=== PATIENT | male | born 1970 | race Caucasian/White ===

== ENCOUNTER 2017-03-21 12:27 | Emergency (ER) | payer BC ==
[2017-03-21] MEDS ORDERED: Ketorolac Tromethamine 30 MG/ML VIAL ONE (13:24)
[2017-03-21] MEDS ORDERED: predniSONE 20 MG TAB ONE (13:24)
[2017-03-21] MEDS ORDERED: Diazepam 5 MG TAB ONE (13:25)
[2017-03-21] MEDS ORDERED: Methocarbamol 500 MG TAB PO SCH (15:45)
== END 2017-03-21 19:48 | disposition home or self-care (01) ==
LOC: ERS 12:27
DX: M54.17 Radiculopathy, lumbosacral region (principal); E03.9 Hypothyroidism, unspecified; E78.5 Hyperlipidemia, unspecified; I48.91 Unspecified atrial fibrillation; I10 Essential (primary) hypertension; E11.9 Type 2 diabetes mellitus without complications; F41.9 Anxiety disorder, unspecified; Z87.891 Personal history of nicotine dependence
CPT/HCPCS: 96372; J1885; J2270; J7506

== ENCOUNTER 2017-06-15 00:31 | Emergency (ER) | payer BC ==
[2017-06-15 01:11] LABS: #Basophils 0.1 thou/uL (0.0-0.2); #Eosinphils 0.6 thou/uL (0.0-0.7); #Monocytes 0.6 thou/uL (0.11-0.59); #Neutrophils 4.8 thou/uL (1.40-6.50); %Basophils 0.8 % (0.0-1.0); %Eosinophils 5.1 % (0.0-10.0); %Lymphocytes 45.2 % (21.0-51.0); %Monocytes 5.3 % (0.0-10.0); Hematocrit 43.1 % (42.0-52.0); Mean Platelet Volume 7.9 fL (7.4-10.4)
[2017-06-15 01:40] LABS: Troponin I Less than 0.010 ng/mL (< 0.028)
[2017-06-15 01:42] LABS: ALT (SGPT) 14 U/L (8-55); AST (SGOT) 15 U/L (5-34); Alkaline Phosphatase 78 U/L (40-150); Anion Gap 13 mmol/L (10-20); BUN (Urea Nitrogen) 13 mg/dL (8.9-20.6); Bilirubin, Total 0.3 mg/dL (0.2-1.2); Calc. Creatinine Clearance 0 mL/min (70-130); Calcium 9.8 mg/dL (7.8-10.44); Carbon Dioxide 30 mmol/L (22-29); Chloride 98 mmol/L (98-107); Estimated GFR-MDRD 88; Globulin 3.4 g/dL (2.4-3.5); Protein, Total 7.5 g/dL (6.0-8.3)
== END 2017-06-15 02:04 | disposition left against medical advice (07) ==
LOC: ERS 00:31
DX: Z53.21 Procedure and treatment not carried out due to patient leaving prior to being seen by health care provider (principal)
CPT/HCPCS: 36415; 80053; 82553; 84484; 85025; 93005

== ENCOUNTER 2018-05-03 05:50 | Day surgery (SDC) | payer BC ==
[2018-05-03 06:41] LABS: #Basophils 0.1 thou/uL (0.0-0.2); #Eosinphils 0.3 thou/uL (0.0-0.7); #Lymphocytes 3.1 thou/uL (1.20-3.40); #Monocytes 0.7 thou/uL (0.11-0.59); #Neutrophils 5.7 thou/uL (1.40-6.50); %Basophils 0.6 % (0.0-1.0); %Eosinophils 2.7 % (0.0-10.0); %Lymphocytes 31.9 % (21.0-51.0); %Monocytes 6.7 % (0.0-10.0); %Neutrophils 58.1 % (42.0-75.0); Mean Corpuscular HGB CONC 34.5 g/dL (32.0-36.0); Mean Corpuscular Hemoglobin 29.9 pg (27.0-31.0); Mean Corpuscular Volume 86.5 fL (78.0-98.0); Mean Platelet Volume 8.1 fL (7.4-10.4); Platelet Count 296 thou/uL (130-400); RBC Distribution Width 11.5 % (11.5-14.5); Red Blood Cell (RBC) Count 5.36 mill/uL (4.70-6.10); White Blood Cell (WBC) Count 9.8 thou/uL (4.8-10.8)
[2018-05-03 06:48] LABS: PTT 28.9 SEC (22.9-36.1)
[2018-05-03] MEDS ORDERED: CEFAZOLIN 1 GM VIAL ONE (06:48)
[2018-05-03 07:04] LABS: Anion Gap 11 mmol/L (10-20); BUN (Urea Nitrogen) 13 mg/dL (8.9-20.6); Calc. Creatinine Clearance 0 mL/min (70-130); Calcium 10.2 mg/dL (7.8-10.44); Carbon Dioxide 29 mmol/L (22-29); Chloride 100 mmol/L (98-107); Estimated GFR-MDRD Greater than 90; Glucose 176 mg/dL (70-105); Potassium 3.9 mmol/L (3.5-5.1); Sodium 136 mmol/L (136-145)
[2018-05-03] MEDS ORDERED: Propofol 500 MG/50 ML VIAL ONE (07:46)
[2018-05-03] MEDS ORDERED: Midazolam HCl 2 mg/2 ml Vial ONE (07:52)
[2018-05-03] MEDS ORDERED: PHENYLEPHRINE-NS 100 MCG/ML 10 ML SYRINGE ONE ×2 (08:46→14:50)
[2018-05-03] MEDS ORDERED: PROPOFOL 200 MG/20 ML VIAL ONE (14:50)
--- NOTE | 2018-05-03 16:50 | EKG ---
Test Reason : PREOP Blood Pressure : / mmHG Vent. Rate : 069 BPM Atrial Rate : 069 BPM P-R Int : 164 ms QRS Dur : 154 ms QT Int : 434 ms P-R-T Axes : 058 -05 093 degrees QTc Int : 465 ms Electronic ventricular pacemaker Confirmed by DR. Jose Juan OLMOS ([id number]) on 05/03/2018 4:50:20 PM Referred By: [facility] Confirmed By:DR. Jose Juan OLMOS
== END 2018-05-03 10:35 | disposition home or self-care (01) ==
LOC: CCL 05:50
PROVIDERS: ATTEND Internal Medicine Cardiovascular Disease
PROC: 0JH609Z Insertion of Cardiac Resynchronization Defibrillator Pulse Generator into Chest Subcutaneous Tissue and Fascia, Open Approach (ICD-10-PCS; principal; 2018-05-03)
PROC: 0JPT0PZ Removal of Cardiac Rhythm Related Device from Trunk Subcutaneous Tissue and Fascia, Open Approach (ICD-10-PCS; principal; 2018-05-03)
DX: Z45.02 Encounter for adjustment and management of automatic implantable cardiac defibrillator (principal); F10.11 Alcohol abuse, in remission; I42.8 Other cardiomyopathies; I48.0 Paroxysmal atrial fibrillation; I44.7 Left bundle-branch block, unspecified; I50.22 Chronic systolic (congestive) heart failure; E11.9 Type 2 diabetes mellitus without complications; F41.9 Anxiety disorder, unspecified; Z79.82 Long term (current) use of aspirin; Z79.84 Long term (current) use of oral hypoglycemic drugs; Z79.899 Other long term (current) drug therapy
CPT/HCPCS: 33263; 80048; 85025; 85610; 85730; 93005; 93010; 93640; C1882; J0690; J2250; J2704; J3490

== ENCOUNTER 2018-05-10 15:21 | Emergency (ER) | payer BC ==
[2018-05-10 15:49] LABS: #Basophils 0.1 thou/uL (0.0-0.2); #Eosinphils 0.3 thou/uL (0.0-0.7); #Lymphocytes 3.9 thou/uL (1.20-3.40); #Monocytes 0.8 thou/uL (0.11-0.59); #Neutrophils 8.9 thou/uL (1.40-6.50); %Basophils 0.9 % (0.0-1.0); %Eosinophils 2.4 % (0.0-10.0); %Lymphocytes 27.4 % (21.0-51.0); %Monocytes 5.7 % (0.0-10.0); %Neutrophils 63.5 % (42.0-75.0); Hemoglobin 15.5 g/dL (14.0-18.0); Mean Corpuscular HGB CONC 33.3 g/dL (32.0-36.0); Mean Corpuscular Hemoglobin 29.2 pg (27.0-31.0); Mean Corpuscular Volume 87.7 fL (78.0-98.0); Mean Platelet Volume 8.1 fL (7.4-10.4); Platelet Count 294 thou/uL (130-400); RBC Distribution Width 11.4 % (11.5-14.5); White Blood Cell (WBC) Count 14.1 thou/uL (4.8-10.8)
[2018-05-10 16:15] LABS: CKMB 0.8 ng/mL (0-6.6); Troponin I Less than 0.010 ng/mL (< 0.028)
--- NOTE | 2018-05-10 16:41 | RAD ---
SINGLE VIEW CHEST: Date: 05/10/18 COMPARISON: 03/26/16. HISTORY: Chest pain and abdominal pain. FINDINGS: Single view of the chest shows normal sized cardiomediastinal silhouette. The pacemaker is unchanged in position. There is no evidence of consolidation, mass, or pleural effusion. IMPRESSION: No evidence of acute cardiopulmonary disease. POS: TPC
[2018-05-10] MEDS ORDERED: Mag-Al 1200 mg/1200 mg/30 ML UDCUP ONE (17:42)
[2018-05-10] MEDS ORDERED: Lidocaine Viscous Sol 2% 15 ml UD Cup ONE (17:42)
[2018-05-10 18:41] LABS: ALT (SGPT) 20 U/L (8-55); AST (SGOT) 17 U/L (5-34); Albumin 4.7 g/dL (3.5-5.0); Alkaline Phosphatase 76 U/L (40-150); Anion Gap 12 mmol/L (10-20); BUN (Urea Nitrogen) 12 mg/dL (8.9-20.6); Bilirubin, Total 0.6 mg/dL (0.2-1.2); Calc. Creatinine Clearance 0 mL/min (70-130); Carbon Dioxide 30 mmol/L (22-29); Chloride 99 mmol/L (98-107); Estimated GFR-MDRD 89; Globulin 3.1 g/dL (2.4-3.5); Glucose 120 mg/dL (70-105); Potassium 3.8 mmol/L (3.5-5.1); Protein, Total 7.8 g/dL (6.0-8.3); Sodium 137 mmol/L (136-145)
== END 2018-05-10 19:02 | disposition home or self-care (01) ==
LOC: ERS 15:21
DX: R14.0 Abdominal distension (gaseous) (principal); E03.9 Hypothyroidism, unspecified; E78.5 Hyperlipidemia, unspecified; I48.91 Unspecified atrial fibrillation; I10 Essential (primary) hypertension; F17.220 Nicotine dependence, chewing tobacco, uncomplicated; F41.9 Anxiety disorder, unspecified; Z79.899 Other long term (current) drug therapy; Z79.891 Long term (current) use of opiate analgesic; Z79.82 Long term (current) use of aspirin; Z79.84 Long term (current) use of oral hypoglycemic drugs
CPT/HCPCS: 36415; 71045; 80053; 82553; 83690; 84484; 85025; 93005

== ENCOUNTER 2018-10-30 02:47 | Emergency (ER) | payer BC ==
--- NOTE | 2018-10-30 08:37 | RAD ---
EXAM: XR Wrist 3 Lt View STANDARD PROVIDED CLINICAL HISTORY: Pain FINDINGS: There is no evidence for fracture or other acute osseous abnormality. Alignment appears anatomic. Anne nt spaces appear preserved. IMPRESSION: No evidence for an acute osseous abnormality. If there is persistent clinical concern, conservative m anagement and follow-up imaging advised.
== END 2018-10-30 03:47 | disposition home or self-care (01) ==
LOC: ERS 02:47
DX: M77.9 Enthesopathy, unspecified (principal); E03.9 Hypothyroidism, unspecified; E78.5 Hyperlipidemia, unspecified; I48.91 Unspecified atrial fibrillation; I10 Essential (primary) hypertension; E11.9 Type 2 diabetes mellitus without complications; F17.220 Nicotine dependence, chewing tobacco, uncomplicated; F41.9 Anxiety disorder, unspecified; Z79.899 Other long term (current) drug therapy; Z79.82 Long term (current) use of aspirin

== ENCOUNTER 2019-06-23 06:54 | Emergency (ER) | payer BC ==
[2019-06-23] MEDS ORDERED: HYDROcodone/Acetaminophen 10/325 mg Tablet ONE (07:22)
--- NOTE | 2019-06-23 08:15 | RAD ---
RIGHT FOOT RADIOGRAPHS 3 VIEWS: DATE: 06/23/2019. PROVIDED CLINICAL HISTORY: Pain status post injury. FINDINGS: There is no evidence for a fracture or other acute osseous abnormality. If there is persistent clini bartolome concern, conservative management and followup imaging are advised. IMPRESSION: As above. POS: OFF
== END 2019-06-23 08:48 | disposition home or self-care (01) ==
LOC: ERS 06:54
DX: L03.115 Cellulitis of right lower limb (principal); E03.9 Hypothyroidism, unspecified; E78.5 Hyperlipidemia, unspecified; I48.91 Unspecified atrial fibrillation; I10 Essential (primary) hypertension; F17.220 Nicotine dependence, chewing tobacco, uncomplicated; E78.00 Pure hypercholesterolemia, unspecified; Z79.82 Long term (current) use of aspirin; Z79.899 Other long term (current) drug therapy; Z79.891 Long term (current) use of opiate analgesic

== ENCOUNTER 2020-04-01 01:49 | Inpatient (IN) | payer BC, OTHER ==
[2020-04-01] MEDS ORDERED: Ondansetron PF 4 MG/2 ML Vial ONE (02:08)
[2020-04-01] MEDS ORDERED: Metoclopramide HCl 10 MG/2 ML VIAL ONE (02:36)
[2020-04-01] MEDS ORDERED: Morphine 4 MG/ML VIAL ONE (02:36)
[2020-04-01] MEDS ORDERED: Metoclopramide 10 MG/10 ML UDCUP ONE (02:36)
[2020-04-01 02:42] LABS: Hemoglobin 19.4 g/dL (14.0-18.0); Mean Corpuscular HGB CONC 34.6 g/dL (32.0-36.0); Mean Corpuscular Hemoglobin 30.1 pg (27.0-31.0); Mean Platelet Volume 9.9 fL (7.4-10.4); Platelet Count 243 thou/uL (130-400); RBC Distribution Width 11.9 % (11.5-14.5); Red Blood Cell (RBC) Count 6.44 mill/uL (4.70-6.10); White Blood Cell (WBC) Count 28.2 thou/uL (4.8-10.8)
[2020-04-01 03:01] LABS: ALT (SGPT) 22 U/L (8-55); AST (SGOT) 22 U/L (5-34); Albumin 5.1 g/dL (3.5-5.0); Alkaline Phosphatase 106 U/L (40-110); Anion Gap 36 mmol/L (10-20); BUN (Urea Nitrogen) 20 mg/dL (8.9-20.6); Calc. Creatinine Clearance 0 mL/min (70-130); Calcium 10.5 mg/dL (7.8-10.44); Carbon Dioxide 11 mmol/L (22-29); Chloride 94 mmol/L (98-107); Estimated GFR-MDRD 49; Globulin 3.5 g/dL (2.4-3.5); Glucose 214 mg/dL (70-105); Lipase 10 U/L (8-78); Magnesium 2.1 mg/dL (1.6-2.6); Potassium 4.2 mmol/L (3.5-5.1); Protein, Total 8.6 g/dL (6.0-8.3); Sodium 137 mmol/L (136-145)
[2020-04-01 03:02] LABS: Band 4 % (5-11); Hypochromia SLIGHT = 6-15 cells (100X) (0-5/hpf); Lymphocytes 4 % (21-51); MDiff Complete? YES; Monocytes 4 % (0-10); Neutrophil 88 % (42-75); Platelet Morphology Comment Appears Adequate
[2020-04-01] MEDS ORDERED: Promethazine HCl 25 MG/ML VIAL ONE (03:06)
[2020-04-01] MEDS ORDERED: Cefepime 2 GM VIAL ONE (03:39)
[2020-04-01 03:43] LABS: Bacteria/HPF None Seen HPF (None Seen); Bilirubin Negative (Negative); Blood, Urine Negative (Negative); Clarity Clear (Clear); Glucose, Urine (Dipstick) Greater than 1000 mg/dL (Negative); Ketone, Urine Greater than 150 mg/dL (Negative); Leukocyte Negative Leu/uL (Negative); Nitrite Negative (Negative); Protein, Urine (Dipstick) 30 mg/dL (Neg-Trace); RBC/HPF 0-3 HPF (0-3); Specific Gravity, Urine 1.027 (1.002-1.036); Squamous Epithelial None Seen HPF (0-3); Urobilinogen Normal mg/dL (Less than 2); WBC/HPF 0-3 HPF (0-3); pH, Urine 5.5 (5.0-9.0)
[2020-04-01] MEDS ORDERED: Haloperidol Lactate 5 MG/ML VIAL ONE (03:43)
[2020-04-01] MEDS ORDERED: Famotidine/PF 20 mg/2ml Vial ONE (03:45)
[2020-04-01] MEDS ORDERED: INSULIN REGULAR IN 0.9 % NACL 100 UNIT/100 ML BAG ONE (04:45)
[2020-04-01] MEDS ORDERED: Sodium Chloride 0.9% 1,000 ML IV PRN (05:09)
[2020-04-01] MEDS ORDERED: Dextrose 5 %-0.45 % NaCl 1,000 ML IV PRN (05:09)
[2020-04-01] MEDS ORDERED: Electrolyte Replacement Protoc 1 EACH EACH IVPB PRN (05:09)
[2020-04-01] MEDS ORDERED: HUMULIN R 100 UNITS in Sodium Chloride 0.9% 100 ML IVPB SCH (05:15)
[2020-04-01] MEDS ORDERED: Communication Order-Pharmacy FS ONE (05:15)
--- NOTE | 2020-04-01 05:24 | PDOC.HHP ---
Hospitalist HPI - History of Present Illness Nausea and vomiting History of Present Illness: 49-year-old gentleman with a history of diabetes mellitus, history of chronic systolic heart failure with low ejection fraction, status post AICD presented to the emergency department with a 3-day history of nausea and vomiting. Patient denied any diarrhea or abdominal pain. He could not hold any food or drink in. His blood work in the ED showed severe leukocytosis, patient is afebrile, he is tachycardic and meets criteria for sepsis. He was still dry heaving when I saw him in the ED. blood work shows metabolic acidosis and a glucose level of 214. His hemoglobin level is 19. BMP also shows metabolic acidosis with a bicarb of 11 and high anion gap of 36. He also has evidence of acute renal failure with a creatinine of 1.4. Patient endorsed drinking alcohol 2 days ago. His chest x- ray is unremarkable. His urine shows no evidence of UTI but significant glycosuria and ketonuria. Patient is diagnosed with sepsis and DKA and admitted for further management. Hospitalist ROS - Review of Systems Other: Except as documented, all other systems reviewed and negative. - Medication Medications: Medication Instructions Recorded Confirmed Type Furosemide 20 mg PO QAM 05/06/14 04/01/20 History Aspirin [Aspirin EC] 81 mg PO DAILY 04/01/20 04/01/20 History Atorvastatin Calcium 20 mg PO DAILY 04/01/20 04/01/20 History Canagliflozin [Invokana] 300 mg PO DAILY 04/01/20 04/01/20 History Carvedilol [Coreg] 6.25 mg PO BID 04/01/20 04/01/20 History Losartan Potassium [Cozaar] 50 mg PO DAILY 04/01/20 04/01/20 History sitaGLIPtin Phosphate [Januvia] 100 mg PO DAILY 04/01/20 04/01/20 History Hospitalist History - Past Medical History Cardiac: reports: AFIB, CHF, Hyperlipidemia, Other (Alcoholic cardiomyopathy with low EF.) Psych: reports: Anxiety - Past Surgical History Past Surgical History: reports: Appendectomy, Tonsillectomy - Family History Family History: reports: cardiac disorder, hypertension - Social History Smoking Status: Current every day smoker Alcohol: reports: Occassional (Used to be a heavy drinker.) Drugs: reports: none Living Situation: With Family - Exam General Appearance: awake alert General - other findings: Moderate distress due to vomiting Eye: PERRL, anicteric sclera ENT: normocephalic atraumatic, no oropharyngeal lesions, moist mucosa Neck: supple, symmetric, no JVD Heart: RRR, no murmur, no gallops Respiratory: CTAB, no wheezes, no rales, no ronchi Gastrointestinal: soft, non-tender, non-distended, normal bowel sounds Extremities: no cyanosis, no edema Skin: normal turgor, no rashes Neurological: cranial nerve grossly intact, no weakness, no focal deficits Musculoskeletal: normal tone, normal strength Psychiatric: normal affect, A&O x 3 Hospitalist Results - Labs Result Diagrams: 04/01/20 02:24 04/01/20 05:16 Lab results: WBC 28.2 thou/uL (4.8-10.8) H 04/01/20 02:24 Hgb 19.4 g/dL (14.0-18.0) H 04/01/20 02:24 Hct 56.0 % (42.0-52.0) H 04/01/20 02:24 MCV 87.0 fL (78.0-98.0) 04/01/20 02:24 Plt Count 243 thou/uL (130-400) 04/01/20 02:24 Band Neuts % (Manual) 4 % (5-11) L 04/01/20 02:24 Sodium 137 mmol/L (136-145) 04/01/20 02:24 Potassium 4.2 mmol/L (3.5-5.1) 04/01/20 02:24 Chloride 94 mmol/L (98-107) L 04/01/20 02:24 Carbon Dioxide 11 mmol/L (22-29) L 04/01/20 02:24 BUN 20 mg/dL (8.9-20.6) 04/01/20 02:24 Creatinine 1.54 mg/dL (0.7-1.3) H 04/01/20 02:24 Glucose 214 mg/dL (70-105) H 04/01/20 02:24 Lactic Acid 3.4 mmol/L (0.5-2.2) H 04/01/20 02:12 Calcium 10.5 mg/dL (7.8-10.44) H 04/01/20 02:24 Total Bilirubin 1.0 mg/dL (0.2-1.2) 04/01/20 02:24 AST 22 U/L (5-34) 04/01/20 02:24 ALT 22 U/L (8-55) 04/01/20 02:24 Alkaline Phosphatase 106 U/L (40-110) 04/01/20 02:24 Troponin I Less than 0.010 ng/mL (< 0.028) 04/01/20 02:24 B-Natriuretic Peptide 24.2 pg/mL (0-100) 04/01/20 02:24 Serum Total Protein 8.6 g/dL (6.0-8.3) H 04/01/20 02:24 Albumin 5.1 g/dL (3.5-5.0) H 04/01/20 02:24 Lipase 10 U/L (8-78) 04/01/20 02:24 Urine Ketones Greater than 150 mg/dL (Negative) A 04/01/20 03:12 Urine Blood Negative (Negative) 04/01/20 03:12 Urine Nitrite Negative (Negative) 04/01/20 03:12 Ur Leukocyte Esterase Negative Becky/uL (Negative) 04/01/20 03:12 Urine RBC 0-3 HPF (0-3) 04/01/20 03:12 Urine WBC 0-3 HPF (0-3) 04/01/20 03:12 Ur Squamous Epith Cells None Seen HPF (0-3) 04/01/20 03:12 Urine Bacteria None Seen HPF (None Seen) 04/01/20 03:12 - EKG Interpretation EKG: Paced rhythm. - Radiology Interpretation Chest x-ray Status: report reviewed by me (No acute cardiopulmonary process) Hospitalist H&P A/P - Problem (1) Diabetic ketoacidosis Code(s): E11.10 - TYPE 2 DIABETES MELLITUS WITH KETOACIDOSIS WITHOUT COMA Status: Acute (2) Alcohol ingestion Code(s): Z78.9 - OTHER SPECIFIED HEALTH STATUS Status: Acute (3) Intractable nausea and vomiting Code(s): R11.2 - NAUSEA WITH VOMITING, UNSPECIFIED Status: Acute (4) Sepsis Code(s): A41.9 - SEPSIS, UNSPECIFIED ORGANISM Status: Acute (5) Acute renal failure Status: Acute (6) Alcoholic cardiomyopathy Code(s): I42.6 - ALCOHOLIC CARDIOMYOPATHY Status: Chronic (7) Chronic systolic heart failure Code(s): I50.22 - CHRONIC SYSTOLIC (CONGESTIVE) HEART FAILURE Status: Chronic - Plan Plan: Admit to IMCU. Initiate DKA protocol starting with D5 half-normal saline and insulin drip. Caution with IV hydration given history of systolic heart failure. Severe leukocytosis and polycythemia could be secondary to hemoconcentration from dehydration Aggressive antibiotic therapy-IV cefepime and vancomycin. UA negative for UTI Follow blood cultures. Supportive measures with antiemetics. Hold Lasix. Monitor renal function for improvement with IV hydration.
[2020-04-01 05:37] LABS: Phosphorus 4.5 mg/dL (2.3-4.7)
[2020-04-01 05:44] LABS: Lactic Acid 1.6 mmol/L (0.5-2.2)
[2020-04-01 05:50] LABS: ALT (SGPT) 17 U/L (8-55); AST (SGOT) 17 U/L (5-34); Albumin 4.3 g/dL (3.5-5.0); Alcohol Less than 10 mg/dL (Less than 10); Alkaline Phosphatase 90 U/L (40-110); Anion Gap 29 mmol/L (10-20); BUN (Urea Nitrogen) 21 mg/dL (8.9-20.6); Bilirubin, Total 0.7 mg/dL (0.2-1.2); Calc. Creatinine Clearance 0 mL/min (70-130); Calcium 8.7 mg/dL (7.8-10.44); Carbon Dioxide 10 mmol/L (22-29); Chloride 102 mmol/L (98-107); Estimated GFR-MDRD 63; Globulin 2.8 g/dL (2.4-3.5); Glucose 184 mg/dL (70-105); Potassium 4.1 mmol/L (3.5-5.1); Protein, Total 7.1 g/dL (6.0-8.3); Sodium 137 mmol/L (136-145)
[2020-04-01] MEDS ORDERED: Labetalol HCl 200 MG in Sodium Chloride 0.9% 250 ML 160 ML IVPB SCH (06:00)
[2020-04-01 06:12] LABS: Amphetamine Detected (NotDetected); Barbiturates Screen Not Detected (NotDetected); Benzodiazepine Screen Not Detected (NotDetected); Cocaine Metabolite Screen Not Detected (NotDetected); Medtox Control Line Valid? VALID (VALID); Medtox Reader # READER 1; Methadone Not Detected (NotDetected); Methamphetamine Detected (NotDetected); Opiate Screen Detected (NotDetected); Oxycodone Screen Not Detected (NotDetected); Phencyclidine (PCP) Not Detected (NotDetected); THC/Cannabinoid Screen Not Detected (NotDetected); Tricyclic Screen Not Detected (NotDetected)
[2020-04-01] MEDS: D5 1/2 NS w/20 mEq KCL 1,000 ML IV SCH ×5 (06:15→21:11)
[2020-04-01 06:36] VITALS: BMI 25.2
[2020-04-01] MEDS ORDERED: Vancomycin HCl 1 GM in Sodium Chloride 0.9% 250 ML 300 ML IVPB SCH (09:00)
[2020-04-01] MEDS: Ondansetron PF 4 MG/2 ML Vial IVP PRN ×2 (10:10→21:11)
--- NOTE | 2020-04-01 10:51 | RAD ---
PORTABLE CHEST: HISTORY: Epigastric pain. COMPARISON: 05/10/2018 exam. FINDINGS: Heart size is within normal limits. Pacemaker device is present. The lungs are clear of any infiltr ative process. IMPRESSION: No active intrathoracic disease. POS: OFF
[2020-04-01 10:53] LABS: Anion Gap 15 mmol/L (10-20); BUN (Urea Nitrogen) 18 mg/dL (8.9-20.6); Calc. Creatinine Clearance 81 mL/min (70-130); Calcium 8.5 mg/dL (7.8-10.44); Carbon Dioxide 17 mmol/L (22-29); Chloride 106 mmol/L (98-107); Estimated GFR-MDRD 61; Glucose 136 mg/dL (70-105); Potassium 3.9 mmol/L (3.5-5.1); Sodium 134 mmol/L (136-145)
[2020-04-01] MEDS: Cefepime 2 GM in Sodium Chloride 0.9% 100 ML IVPB SCH ×2 (11:18→21:10)
[2020-04-01] MEDS ORDERED: Acetaminophen 325 MG TAB PO PRN (12:29)
[2020-04-01 13:28] LABS: SARS-CoV-2 MS2 Positive; SARS-CoV-2 N Gene Negative; SARS-CoV-2 S Gene Negative; SARS-CoV-2 by NAA Not Detected (NotDetected); SARS-CoV-2 orf1ab Negative
--- NOTE | 2020-04-01 13:39 | PDOC.HOSPP ---
- Subjective Encounter Date: 04/01/20 Encounter Time: 11:50 Subjective: Patient is resting. He has no acute complaints he is responding appropriately. However he is slightly somnolent with the sleepiness. Insulin drip running at 4 units an hour. - Objective Vital Signs & Weight: Vital Signs (12 hours) Temp Pulse Resp BP Pulse Ox 04/01/20 11:27 99.0 F 04/01/20 08:00 116 H 12 123/74 94 L 04/01/20 07:16 99.2 F 04/01/20 05:45 99.0 F Weight Weight 176 lb 3 oz Most Recent Monitor Data Heart Rate from ECG 108 NIBP 110/65 NIBP BP-Mean 80 Respiration from ECG 14 SpO2 95 I&O: 03/31/20 04/01/20 04/02/20 06:59 06:59 06:59 Intake Total 368 2090 Output Total 0 Balance 368 2090 Result Diagrams: 04/01/20 02:24 04/01/20 10:23 Additional Labs: Accuchecks 04/01/20 04/01/20 04/01/20 13:07 12:05 10:04 POC Glucose 146 H 144 H 137 H 04/01/20 04/01/20 04/01/20 09:08 08:11 07:05 POC Glucose 161 H 175 H 180 H 04/01/20 04/01/20 04/01/20 06:21 05:17 02:32 POC Glucose 169 H 187 H 211 H Hospitalist ROS - Medication Medications: Active Medications Generic Name Dose Route Start Last Admin Trade Name Freq PRN Reason Stop Dose Admin Potassium Chloride/Dextrose/Sod Cl 1,000 mls @ 250 mls/hr 04/01/20 05:15 04/01/20 11:18 D5 1/2 Ns W/20 Meq Kcl IV 1,000 mls .Q4H ANDI Administration Cefepime HCl 2 gm/ Sodium 100 mls @ 200 mls/hr 04/01/20 12:00 04/01/20 11:18 Chloride IVPB 100 mls 0400,1200,2000 ANDI Administration Ondansetron HCl 4 mg 04/01/20 05:36 04/01/20 10:10 Ondansetron Pf 4 Mg/2 Ml Vial IVP 4 mg Q6H PRN Administration Nausea/Vomiting - Exam General Appearance: NAD Eye: PERRL ENT: normocephalic atraumatic Neck: supple Heart: RRR, normal peripheral pulses Respiratory: CTAB, normal chest expansion Gastrointestinal: soft, normal bowel sounds Neurological: no focal deficits Psychiatric: A&O x 3 Hosp A/P - Plan (1) Diabetic ketoacidosis Sepsis c ruled out as he presented with a DKA and severe dehydration. Dehydration caused acute stress demargination for elevated white count and polycythemia suggestive of hemoconcentration. Follow DKA protocol -Latest anion gap is 15. Will check his BMP this evening and if anion gap closed then will initiate his home medication of sitagliptin as well as Invokana. Orders in place. -Start sliding scale insulin. (2) Alcohol ingestion (6) Alcoholic cardiomyopathy Code(s): Z78.9 - OTHER SPECIFIED HEALTH STATUS Status: Acute -Alcohol level less than 10 -Add Ativan PRN for any agitation and anxiety. (3) Intractable nausea and vomiting Code(s): R11.2 - NAUSEA WITH VOMITING, UNSPECIFIED Status: Acute Due to DKA -On Phenergan. -Likely to be improved once DKA being resolved. (5) Acute renal failure Status: Acute --improving (7) Chronic systolic heart failure Code(s): I50.22 - CHRONIC SYSTOLIC (CONGESTIVE) HEART FAILURE Status: Chronic Aggressive antibiotic therapy-IV cefepime and vancomycin. UA negative for UTI--- they have done urine culture, even though UA was benign, negative for growth. -We will de-escalate the antibiotics in the next 24 hours. He is on IV Vanco and cefepime. -Chest x-ray without any active disease. Supportive measures with antiemetics. Hold Lasix. Monitor renal function for improvement with IV hydration.
[2020-04-01] MEDS ORDERED: Dextrose 50% Abboject 50 ML SYRINGE SLOW IVP PRN (13:44)
[2020-04-01] MEDS ORDERED: Dextrose 5% in Water 1,000 ML IV PRN (13:44)
[2020-04-01] MEDS ORDERED: HumaLOG 300 UNITS/3 ML VIAL SC PRN (13:44)
[2020-04-01] MEDS ORDERED: Lorazepam 2 MG/ML VIAL SLOW IVP PRN (13:48)
[2020-04-01] MEDS: Promethazine HCl 25 MG/ML VIAL SLOW IVP PRN (13:49)
[2020-04-01] MEDS ORDERED: Promethazine HCl 12.5 MG, Admixture Fee 1 EACH in Sodium Chloride 0.9% 50 ML IVPB PRN (14:09)
[2020-04-01 14:47] LABS: Anion Gap 12 mmol/L (10-20); BUN (Urea Nitrogen) 17 mg/dL (8.9-20.6); Calc. Creatinine Clearance 86 mL/min (70-130); Calcium 8.3 mg/dL (7.8-10.44); Carbon Dioxide 19 mmol/L (22-29); Chloride 106 mmol/L (98-107); Estimated GFR-MDRD 65; Glucose 129 mg/dL (70-105); Sodium 133 mmol/L (136-145)
[2020-04-01 16:20] LABS: Anion Gap 10 mmol/L (10-20); BUN (Urea Nitrogen) 16 mg/dL (8.9-20.6); Calc. Creatinine Clearance 90 mL/min (70-130); Calcium 8.2 mg/dL (7.8-10.44); Carbon Dioxide 19 mmol/L (22-29); Cardiac Risk 2.2 (Less than 4.5); Chloride 107 mmol/L (98-107); Cholesterol 114 mg/dl (< 200 Desired); Estimated GFR-MDRD 68; Glucose 139 mg/dL (70-105); HDL Cholesterol 53 mg/dL (>60 Neg Risk); LDL Cholesterol, Calculated 49 mg/dL; Potassium 3.9 mmol/L (3.5-5.1); Sodium 132 mmol/L (136-145); Triglycerides 58 mg/dL (Less than 150)
[2020-04-01] MEDS: Cepastat Lozenges 1 LOZ PO PRN ×2 (16:51→21:20)
[2020-04-01] MEDS: Vancomycin HCl 1.25 GM in Sodium Chloride 0.9% 250 ML 250 ML IVPB SCH (16:51)
[2020-04-01] MEDS: Mag-Al Plus 1200 MG/1200 MG/120 MG/30 ML UDCUP PO PRN (16:52)
[2020-04-01] MEDS: Carvedilol 6.25 MG TAB PO SCH (21:10)
[2020-04-01] MEDS: Atorvastatin Calcium 20 MG TAB PO SCH (21:10)
[2020-04-02] MEDS: Promethazine HCl 25 MG/ML VIAL SLOW IVP PRN ×2 (00:29→09:11)
[2020-04-02] MEDS: D5 1/2 NS w/20 mEq KCL 1,000 ML IV SCH ×4 (01:13→12:31)
[2020-04-02] MEDS: Cefepime 2 GM in Sodium Chloride 0.9% 100 ML IVPB SCH ×3 (03:34→19:57)
[2020-04-02 03:44] LABS: Hemoglobin A1c 8.5 % (4.0-6.0)
[2020-04-02] MEDS: Vancomycin HCl 1.25 GM in Sodium Chloride 0.9% 250 ML 250 ML IVPB SCH (03:49)
[2020-04-02 03:59] LABS: Anion Gap 11 mmol/L (10-20); BUN (Urea Nitrogen) 10 mg/dL (8.9-20.6); Calc. Creatinine Clearance 106 mL/min (70-130); Calcium 8.1 mg/dL (7.8-10.44); Carbon Dioxide 18 mmol/L (22-29); Chloride 108 mmol/L (98-107); Estimated GFR-MDRD 83; Glucose 157 mg/dL (70-105); Potassium 3.8 mmol/L (3.5-5.1); Sodium 133 mmol/L (136-145)
[2020-04-02] MEDS: Ondansetron PF 4 MG/2 ML Vial IVP PRN ×2 (06:07→12:31)
[2020-04-02] MEDS: Empagliflozin 25 MG TAB PO SCH ×2 (09:11→09:21)
[2020-04-02] MEDS: Carvedilol 6.25 MG TAB PO SCH ×2 (09:11→19:58)
[2020-04-02] MEDS: Furosemide 20 MG TAB PO SCH (09:11)
[2020-04-02] MEDS: Losartan 25 MG TAB PO SCH (09:11)
[2020-04-02] MEDS: Aspirin 81 mg Enteric Coated Tablet PO SCH (09:11)
[2020-04-02] MEDS: Alogliptin 25 MG TAB PO SCH ×2 (09:11→09:21)
[2020-04-02] MEDS ORDERED: chlorproMAZINE HCl 50 MG/2 ML AMP SLOW IVP PRN (12:40)
--- NOTE | 2020-04-02 14:26 | PDOC.HOSPP ---
- Subjective Encounter Date: 04/02/20 Encounter Time: 09:45 Subjective: Patient feels he still has abdominal discomfort. He feels like belching and nauseated. He also has hiccups. at bedside. I talked to the as patient drug screen positive for illicit drugs. To 's knowledge that he has not used for some time but it appears that this may not be a chronic use. However this also contributing to his presence here in addition to DKA with uncontrolled diabetes at baseline. - Objective Vital Signs & Weight: Vital Signs (12 hours) Temp BP 04/02/20 11:16 99.3 F 04/02/20 09:11 102/50 L 04/02/20 07:48 100.4 F H 04/02/20 03:47 98.5 F Weight Weight 176 lb 3 oz Most Recent Monitor Data Heart Rate from ECG 82 NIBP 125/76 NIBP BP-Mean 92 Respiration from ECG 13 SpO2 95 I&O: 04/01/20 04/02/20 04/03/20 06:59 06:59 06:59 Intake Total 368 7439 1764 Output Total 1450 1100 Balance 368 5989 664 Result Diagrams: 04/01/20 02:24 04/02/20 03:23 Additional Labs: Accuchecks 04/02/20 04/02/20 04/02/20 12:24 10:49 08:27 POC Glucose 162 H 151 H 153 H 04/02/20 04/02/20 04/02/20 06:21 04:14 02:22 POC Glucose 163 H 166 H 175 H 04/02/20 04/01/20 04/01/20 00:08 22:08 20:26 POC Glucose 147 H 150 H 148 H 04/01/20 04/01/20 04/01/20 19:15 18:29 17:34 POC Glucose 143 H 132 H 143 H Hospitalist ROS - Medication Medications: Active Medications Generic Name Dose Route Start Last Admin Trade Name Freq PRN Reason Stop Dose Admin Acetaminophen 650 mg 04/01/20 12:29 04/01/20 13:49 Acetaminophen 325 Mg Tab PO 650 mg Q6H PRN Administration Headache/Fever or Pain Al Hydroxide/Mg Hydroxide 30 ml 04/01/20 14:24 04/01/20 16:52 Mag-Al Plus 1200 Mg/1200 Mg/120 Mg/30 Ml Udcup PO 30 ml DAILYPRN PRN Administration Heartburn or Indigestion Alogliptin Benzoate 25 mg 04/02/20 09:00 04/02/20 09:21 Alogliptin 25 Mg Tab PO Not Given DAILY ANDI Aspirin 81 mg 04/02/20 09:00 04/02/20 09:11 Aspirin 81 Mg Enteric Coated Tablet PO 81 mg DAILY ANDI Administration Atorvastatin Calcium 20 mg 04/01/20 21:00 04/01/20 21:10 Atorvastatin Calcium 20 Mg Tab PO 20 mg HS ANDI Administration Carvedilol 6.25 mg 04/01/20 21:00 04/02/20 09:11 Carvedilol 6.25 Mg Tab PO 6.25 mg BID ANDI Administration Furosemide 20 mg 04/02/20 09:00 04/02/20 09:11 Furosemide 20 Mg Tab PO 20 mg QAM ANDI Administration Potassium Chloride/Dextrose/Sod Cl 1,000 mls @ 250 mls/hr 04/01/20 05:15 04/02/20 12:31 D5 1/2 Ns W/20 Meq Kcl IV 1,000 mls .Q4H ANDI Administration Insulin Human Regular 100 101 mls @ 0 mls/hr 04/01/20 05:15 04/01/20 21:11 units/ Sodium Chloride IVPB 101 mls INF ANDI Administration Protocol Titrate Cefepime HCl 2 gm/ Sodium 100 mls @ 200 mls/hr 04/01/20 12:00 04/02/20 12:09 Chloride IVPB 100 mls 0400,1200,2000 ANDI Administration Vancomycin HCl 1.25 gm/ Sodium 250 mls @ 166.667 mls/hr 04/01/20 16:00 04/02/20 03:49 Chloride IVPB 250 mls 0400,1600 ANDI Administration Lorazepam 1 mg 04/01/20 13:48 04/02/20 01:16 Lorazepam 2 Mg/Ml Vial SLOW IVP 1 mg Q4H PRN Administration Agitation Losartan Potassium 50 mg 04/02/20 09:00 04/02/20 09:11 Losartan 25 Mg Tab PO Not Given DAILY ANDI Miscellaneous Medication 25 mg 04/02/20 09:00 04/02/20 09:21 Empagliflozin 25 Mg Tab PO Not Given DAILY ANDI Ondansetron HCl 4 mg 04/01/20 05:36 04/02/20 12:31 Ondansetron Pf 4 Mg/2 Ml Vial IVP 4 mg Q6H PRN Administration Nausea/Vomiting Pantoprazole Sodium 40 mg 04/02/20 09:00 04/02/20 09:12 Pantoprazole 40 Mg Tab PO 40 mg DAILY ANDI Administration Promethazine HCl 12.5 mg 04/01/20 12:29 04/02/20 09:11 Promethazine Hcl 25 Mg/Ml Vial SLOW IVP 12.5 mg Q6H PRN Administration Nausea Sodium Chloride 10 ml 04/01/20 21:00 04/02/20 09:20 Flush - Normal Saline 10 Ml Syringe IVF 10 ml Q12HR ANDI Administration Sodium Chloride 10 ml 04/01/20 12:30 04/02/20 00:30 Flush - Normal Saline 10 Ml Syringe IVF 10 ml PRN PRN Administration Saline Flush Throat Lozenges 2 nanette 04/01/20 16:36 04/01/20 21:20 Cepastat Lozenges 1 Nanette PO 2 nanette TIDPRN PRN Administration SORE THROAT - Exam General Appearance: NAD, awake alert Eye: PERRL ENT: normocephalic atraumatic Neck: supple Heart: RRR Respiratory: CTAB, normal chest expansion Gastrointestinal: soft, normal bowel sounds Neurological: no focal deficits Psychiatric: A&O x 3 Hosp A/P - Plan (1) Diabetic ketoacidosis Sepsis c ruled out as he presented with a DKA and severe dehydration. Dehydration caused acute stress demargination for elevated white count and polycythemia suggestive of hemoconcentration. Follow DKA protocol -Latest anion gap is 15. Will check his BMP this evening and if anion gap closed then will initiate his home medication of sitagliptin as well as Invo pato. Orders in place. -Start sliding scale insulin. (2) Alcohol ingestion (6) Alcoholic cardiomyopathy Code(s): Z78.9 - OTHER SPECIFIED HEALTH STATUS Status: Acute -Alcohol level less than 10 -Add Ativan PRN for any agitation and anxiety. (3) Intractable nausea and vomiting Code(s): R11.2 - NAUSEA WITH VOMITING, UNSPECIFIED Status: Acute Due to DKA -On Phenergan. -Likely to be improved once DKA being resolved. (5) Acute renal failure Status: Acute --improving (7) Chronic systolic heart failure Code(s): I50.22 - CHRONIC SYSTOLIC (CONGESTIVE) HEART FAILURE Status: Chronic Aggressive antibiotic therapy-IV cefepime and vancomycin. UA negative for UTI--- they have done urine culture, even though UA was benign, negative for growth. -We will de-escalate the antibiotics in the next 24 hours. He is on IV Vanco and cefepime. -Chest x-ray without any active disease. Supportive measures with antiemetics. Hold Lasix. Monitor renal function for improvement with IV hydration. 5th Polysubstance abuse I talked to the as patient drug screen positive for illicit drugs. To 's knowledge that he has not used for some time and it appears that this may not be chronic use. However this also contributing to his presence here in addition to DKA with uncontrolled diabetes at baseline. Hiccups -Thorazine as needed Type 2 diabetes mellitus - uncontrolled and A1c of 8.5 -Will initiate scheduled insulin along with his home regimen of Januvia -Start clear liquid diet and advance to diabetic diet as tolerated. - Can transfer to medical floor.
[2020-04-02 15:25] LABS: Vancomycin, Trough 9.1 ug/mL
[2020-04-02] MEDS ORDERED: Vancomycin 1 GM in Premix Bag 1 BAG IVPB SCH (16:00)
[2020-04-02] MEDS: HumuLIN 70/30 (300 UNITS/3 ML VIAL) SC SCH ×2 (16:00→20:03)
[2020-04-02] MEDS ORDERED: HumuLIN 70/30 (300 UNITS/3 ML VIAL) SC SCH (16:15)
[2020-04-02] MEDS: Atorvastatin Calcium 20 MG TAB PO SCH (19:58)
[2020-04-02] MEDS: Mag-Al Plus 1200 MG/1200 MG/120 MG/30 ML UDCUP PO PRN (19:58)
[2020-04-03] MEDS: Cefepime 2 GM in Sodium Chloride 0.9% 100 ML IVPB SCH ×2 (03:35→12:17)
[2020-04-03 04:05] LABS: #Basophils 0.1 thou/uL (0.0-0.2); #Eosinphils 0.2 thou/uL (0.0-0.7); #Lymphocytes 3.1 thou/uL (1.20-3.40); #Monocytes 0.9 thou/uL (0.11-0.59); #Neutrophils 7.4 thou/uL (1.40-6.50); %Basophils 0.6 % (0.0-1.0); %Eosinophils 1.5 % (0.0-10.0); %Lymphocytes 26.5 % (21.0-51.0); %Monocytes 8.1 % (0.0-10.0); %Neutrophils 63.3 % (42.0-75.0); Mean Corpuscular HGB CONC 34.3 g/dL (32.0-36.0); Mean Corpuscular Volume 87.5 fL (78.0-98.0); Mean Platelet Volume 9.1 fL (7.4-10.4); Platelet Count 162 thou/uL (130-400); RBC Distribution Width 11.6 % (11.5-14.5); Red Blood Cell (RBC) Count 4.68 mill/uL (4.70-6.10); White Blood Cell (WBC) Count 11.6 thou/uL (4.8-10.8)
[2020-04-03 04:27] LABS: Anion Gap 12 mmol/L (10-20); BUN (Urea Nitrogen) 7 mg/dL (8.9-20.6); Calc. Creatinine Clearance 131 mL/min (70-130); Calcium 8.6 mg/dL (7.8-10.44); Carbon Dioxide 23 mmol/L (22-29); Chloride 106 mmol/L (98-107); Estimated GFR-MDRD Greater than 90; Glucose 119 mg/dL (70-105); Potassium 3.5 mmol/L (3.5-5.1); Sodium 137 mmol/L (136-145)
[2020-04-03] MEDS: Mag-Al Plus 1200 MG/1200 MG/120 MG/30 ML UDCUP PO PRN (05:56)
[2020-04-03] MEDS ORDERED: Potassium Chloride 20 MEQ TAB PO SCH (06:30)
[2020-04-03] MEDS: Losartan 25 MG TAB PO SCH (08:16)
[2020-04-03] MEDS: Furosemide 20 MG TAB PO SCH (08:16)
[2020-04-03] MEDS: Alogliptin 25 MG TAB PO SCH (08:16)
[2020-04-03] MEDS: Aspirin 81 mg Enteric Coated Tablet PO SCH (08:16)
[2020-04-03] MEDS: Carvedilol 6.25 MG TAB PO SCH ×2 (08:16→20:00)
[2020-04-03] MEDS: Empagliflozin 25 MG TAB PO SCH (08:18)
[2020-04-03] MEDS: HumuLIN 70/30 (300 UNITS/3 ML VIAL) SC SCH ×2 (08:19→20:08)
--- NOTE | 2020-04-03 12:42 | PDOC.HOSPP ---
- Subjective Encounter Date: 04/03/20 Encounter Time: 10:40 Subjective: at bedside. Patient appears well. He is handling his liquid diet. Still has burning sensation when he swallows. His symptoms addressed again. He says that his GERD symptoms going on for years. He did not had recent EGD.. His hiccups seems to be improved. - Objective Vital Signs & Weight: Vital Signs (12 hours) Temp Pulse Ox 04/03/20 11:31 98.3 F 04/03/20 08:00 96 04/03/20 07:27 98.4 F 04/03/20 03:00 97 F L Weight Weight 176 lb 3 oz Most Recent Monitor Data Heart Rate from ECG 104 NIBP 111/69 NIBP BP-Mean 83 Respiration from ECG 13 SpO2 94 I&O: 04/02/20 04/03/20 04/04/20 06:59 06:59 06:59 Intake Total 7439 3298 Output Total 1450 3025 Balance 5989 273 Result Diagrams: 04/03/20 03:20 04/03/20 03:20 Additional Labs: Accuchecks 04/03/20 04/03/20 04/02/20 10:44 05:42 20:06 POC Glucose 106 H 117 H 211 H 04/02/20 04/02/20 16:53 14:34 POC Glucose 158 H 164 H Hospitalist ROS - Medication Medications: Active Medications Generic Name Dose Route Start Last Admin Trade Name Freq PRN Reason Stop Dose Admin Acetaminophen 650 mg 04/01/20 12:29 04/01/20 13:49 Acetaminophen 325 Mg Tab PO 650 mg Q6H PRN Administration Headache/Fever or Pain Al Hydroxide/Mg Hydroxide 30 ml 04/01/20 14:24 04/03/20 05:56 Mag-Al Plus 1200 Mg/1200 Mg/120 Mg/30 Ml Udcup PO 30 ml DAILYPRN PRN Administration Heartburn or Indigestion Alogliptin Benzoate 25 mg 04/02/20 09:00 04/03/20 08:16 Alogliptin 25 Mg Tab PO 25 mg DAILY ANDI Administration Aspirin 81 mg 04/02/20 09:00 04/03/20 08:16 Aspirin 81 Mg Enteric Coated Tablet PO 81 mg DAILY ANDI Administration Atorvastatin Calcium 20 mg 04/01/20 21:00 04/02/20 19:58 Atorvastatin Calcium 20 Mg Tab PO 20 mg HS ANDI Administration Carvedilol 6.25 mg 04/01/20 21:00 04/03/20 08:16 Carvedilol 6.25 Mg Tab PO 6.25 mg BID ANDI Administration Chlorpromazine HCl 25 mg 04/02/20 12:40 04/02/20 15:38 Chlorpromazine Hcl 50 Mg/2 Ml Amp SLOW IVP 25 mg Q6H PRN Administration Hiccups Furosemide 20 mg 04/02/20 09:00 04/03/20 08:16 Furosemide 20 Mg Tab PO 20 mg QAM ANDI Administration Insulin Human Isoph/Insulin Regular 5 units 04/02/20 21:00 04/03/20 08:19 Humulin 70/30 (300 Units/3 Ml Vial) SC 5 unit BID ANDI Administration Lorazepam 1 mg 04/01/20 13:48 04/02/20 01:16 Lorazepam 2 Mg/Ml Vial SLOW IVP 1 mg Q4H PRN Administration Agitation Losartan Potassium 50 mg 04/02/20 09:00 04/03/20 08:16 Losartan 25 Mg Tab PO 50 mg DAILY ANDI Administration Miscellaneous Medication 25 mg 04/02/20 09:00 04/03/20 08:18 Empagliflozin 25 Mg Tab PO 25 mg DAILY ANDI Administration Ondansetron HCl 4 mg 04/01/20 05:36 04/02/20 12:31 Ondansetron Pf 4 Mg/2 Ml Vial IVP 4 mg Q6H PRN Administration Nausea/Vomiting Pantoprazole Sodium 40 mg 04/02/20 09:00 04/03/20 08:17 Pantoprazole 40 Mg Tab PO 40 mg DAILY ANDI Administration Promethazine HCl 12.5 mg 04/01/20 12:29 04/02/20 09:11 Promethazine Hcl 25 Mg/Ml Vial SLOW IVP 12.5 mg Q6H PRN Administration Nausea Sodium Chloride 10 ml 04/01/20 21:00 04/03/20 08:17 Flush - Normal Saline 10 Ml Syringe IVF 10 ml Q12HR ANDI Administration Sodium Chloride 10 ml 04/01/20 12:30 04/02/20 00:30 Flush - Normal Saline 10 Ml Syringe IVF 10 ml PRN PRN Administration Saline Flush Throat Lozenges 2 nanette 04/01/20 16:36 04/01/20 21:20 Cepastat Lozenges 1 Nanette PO 2 nanette TIDPRN PRN Administration SORE THROAT - Exam General Appearance: NAD, awake alert Eye: PERRL ENT: normocephalic atraumatic Neck: supple Heart: RRR Respiratory: CTAB, normal chest expansion Gastrointestinal: soft, normal bowel sounds Neurological: no focal deficits Psychiatric: A&O x 3 Hosp A/P - Plan (1) Diabetic ketoacidosis Sepsis c ruled out as he presented with a DKA and severe dehydration. Dehydration caused acute stress demargination for elevated white count and polycythemia suggestive of hemoconcentration. Follow DKA protocol -Latest anion gap is 15. Will check his BMP this evening and if anion gap closed then will initiate his home medication of sitagliptin as well as Invokana. Orders in place. -Start sliding scale insulin. (2) Alcohol ingestion (6) Alcoholic cardiomyopathy Code(s): Z78.9 - OTHER SPECIFIED HEALTH STATUS Status: Acute -Alcohol level less than 10 -Add Ativan PRN for any agitation and anxiety. (3) Intractable nausea and vomiting Code(s): R11.2 - NAUSEA WITH VOMITING, UNSPECIFIED Status: Acute Due to DKA -On Phenergan. -Likely to be improved once DKA being resolved. (5) Acute renal failure Status: Acute --improving (7) Chronic systolic heart failure Code(s): I50.22 - CHRONIC SYSTOLIC (CONGESTIVE) HEART FAILURE Status: Chronic Aggressive antibiotic therapy-IV cefepime and vancomycin. UA negative for UTI--- they have done urine culture, even though UA was benign, negative for growth. -We will de-escalate the antibiotics in the next 24 hours. He is on IV Vanco and cefepime. -Chest x-ray without any active disease. Supportive measures with antiemetics. Hold Lasix. Monitor renal function for improvement with IV hydration. 5th Polysubstance abuse I talked to the as patient drug screen positive for illicit drugs. To 's knowledge that he has not used for some time and it appears that this may not be chronic use. However this also contributing to his presence here in addition to DKA with uncontrolled diabetes at baseline. Hiccups -Thorazine as needed Type 2 diabetes mellitus - uncontrolled and A1c of 8.5 -Will initiate scheduled insulin along with his home regimen of Januvia -Start clear liquid diet and advance to diabetic diet as tolerated. - Can transfer to medical floor. 6th Hiccup improved. Severe GERD -It appears ongoing. He sought health care provider in the past for GERD. It appears that they want to do trial of medications. Not EGD in the past Do not see PPI on his home regimen. Here we started him on PPI MiraLAX and Tums. He has ongoing symptoms of burning sensation whenever he swallows but fe els nothing wrong in his throat, Mostly in the chest area. He is just coming off DKA acute distress. He also has illicit drugs in the system. -We will request the speech therapy to evaluate him -Also placed a GI consult for possible evaluation for EGD versus trial of PPI. Antibiotics discontinued He can come to the medical floor
[2020-04-03] MEDS: Calcium Carbonate 500 MG ChewTAB PO PRN (13:03)
[2020-04-03] MEDS ORDERED: Sodium Chloride 0.9% 1,000 ML IV SCH (15:15)
[2020-04-03] MEDS ORDERED: Pantoprazole 40 MG VIAL IVP SCH (16:15)
[2020-04-03] MEDS ORDERED: Sodium Chloride 0.9% (PF) 10 ML VIAL FS PRN (16:30)
[2020-04-03] MEDS ORDERED: Sucralfate 1 GM/10 ML UDCUP PO SCH (17:00)
[2020-04-03 17:12] LABS: Vancomycin, Trough 3.2 ug/mL
[2020-04-03] MEDS: Atorvastatin Calcium 20 MG TAB PO SCH (20:01)
[2020-04-03] MEDS: Pantoprazole 40 MG VIAL IVP SCH (20:01)
--- NOTE | 2020-04-03 22:07 | PDOC.EVN ---
Event Note - Event Note Event Note: Diabetic gastroparesis cannot be ruled out in his case but wont present w.. burning discomfort as he explains. trial of metoclopramide after GI evaluation is not revealing the etiology.
--- NOTE | 2020-04-03 23:51 | CON ---
DATE OF CONSULTATION: 04/03/2020 REQUESTING PHYSICIAN: Dr. Motley. REASON FOR CONSULTATION: Heartburn. HISTORY OF PRESENT ILLNESS: Sha Hurtado is a -tyrp-mje man with diabetes as well as cardiomyopathy, which is thought to be secondary to prior heavy alcohol abuse. He has an AICD in place. He was admitted to the hospital two days ago after presenting with several days of severe nausea and vomiting. He was found to have a leukocytosis and was tachycardic with an anion gap of 36. He was hemoconcentrated with acute kidney injury. Hemoglobin was 19 and creatinine 1.4. Over the past couple of days on insulin drip with excellent supportive care, his symptoms have all significantly improved. He is not having any further vomiting or nausea or any abdominal pain. His anion gap has improved. However, during this time, he has continued to have a lot of burning chest pain. He says this is really a chronic issue. It has been going on for several years. He has tried several ctnc-kfo-rzwqmxr antacids as well as several xiay-mzc-blcwltc PPIs including Nexium through the years and does not really feel like much has helped. Symptoms are often worse postprandially, but can often be bad, just randomly. He really does not have any dysphagia, just a burning sensation in the chest, abdominal bloating, and reflux sensation. He has been receiving Protonix 40 mg daily here and does not really feel like it has been effective. He has never undergone EGD. He was evaluated by Dr. Frances in the GI clinic last year, but did not undergo any procedure. He says his bowel movements are basically normal. He will have a normal bowel movement every 2-3 days. No significant unintentional weight loss. REVIEW OF SYSTEMS: Full review of systems including constitutional, head, eyes, ears, nose, throat, GI, , cardiovascular, respiratory, musculoskeletal, neurologic systems is negative except as noted in the HPI. 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 SOCIAL HISTORY: He does smoke. Reports no drug abuse, but urine is positive for opiates, methamphetamines, and amphetamines. Alcohol use is occasional. He used to be a heavy drinker. FAMILY HISTORY: Noncontributory. ALLERGIES: NO KNOWN DRUG ALLERGIES. OUTPATIENT MEDICATIONS: 1. Januvia. 2. Cozaar. 3. Furosemide 20 mg daily. 4. Coreg. 5. Invokana. 6. Aspirin 81 mg daily. 7. Atorvastatin 20 mg daily. PHYSICAL EXAMINATION: VITAL SIGNS: Temperature 98.3, pulse 93, blood pressure 130/78, 98% oxygen saturation on room air. GENERAL: 49-year-old man lying in bed comfortably, in no distress. SKIN: Extensive tattoos over the trunk and extremities. No jaundice. No rashes were palpable. EYES: No scleral icterus. Extraocular movements intact. ENT: Mucous membranes moist. No oral lesions. LYMPH: No submandibular or supraclavicular lymphadenopathy. THYROID: Nontender to palpation. HEART: Regular rate and rhythm. LUNGS: Clear to auscultation bilaterally. ABDOMEN: Nondistended. Bowel sounds present. Soft. Mild tenderness to palpation in left upper quadrant. No guarding or rebound tenderness. EXTREMITIES: No peripheral edema. VESSELS: Radial pulses 2+ bilaterally. NEUROLOGICAL: Cranial nerves 2-12 intact bilaterally. No focal deficits. LABORATORY STUDIES: Hemoglobin initially 19.4, now 14.0. WBC initially 28.2, now 11.6. Platelets 162. BUN 7, creatinine down to 0.79. Sodium 137, potassium 3.5, glucose is 106. Troponin negative. BNP only 24. Lipase 10. LFTs all normal with total bilirubin 1.0, alkaline phosphatase 106, AST 22, ALT 22, albumin 5.1. Blood cultures negative. Beta hydroxybutyrate was elevated to 8.66 on admission. Blood alcohol level was negative. Urine tox screen was positive for opiates, methamphetamines, and amphetamines. ASSESSMENT AND PLAN: 1. Chronic heartburn. The patient relates this is unresponsive to PPIs and kutq-fos-luxhtzx antacid medications over the past several years. 2. Diabetic ketoacidosis, now resolved. 3. We are requested to evaluate the chronic heartburn. There are no alarm features present. Suspect he probably has reflux erosive esophagitis. He may have diabetic gastroparesis as a contributor to his heartburn. EGD is warranted for further investigation and we could accomplish this tomorrow. In the meantime, we will try giving a single dose of sucralfate this evening to see how he responds to that symptomatically. Thank you for the consultation. Please call anytime with questions or concerns. Job ID: [id number]
[2020-04-04 03:19] LABS: #Basophils 0.1 thou/uL (0.0-0.2); #Eosinphils 0.1 thou/uL (0.0-0.7); #Lymphocytes 3.4 thou/uL (1.20-3.40); #Monocytes 0.8 thou/uL (0.11-0.59); #Neutrophils 5.8 thou/uL (1.40-6.50); %Basophils 0.6 % (0.0-1.0); %Eosinophils 1.2 % (0.0-10.0); %Lymphocytes 33.2 % (21.0-51.0); %Monocytes 8.3 % (0.0-10.0); %Neutrophils 56.7 % (42.0-75.0); Mean Corpuscular HGB CONC 34.4 g/dL (32.0-36.0); Mean Corpuscular Hemoglobin 30.2 pg (27.0-31.0); Mean Corpuscular Volume 87.8 fL (78.0-98.0); Mean Platelet Volume 8.2 fL (7.4-10.4); Platelet Count 192 thou/uL (130-400); RBC Distribution Width 11.6 % (11.5-14.5); Red Blood Cell (RBC) Count 4.97 mill/uL (4.70-6.10); White Blood Cell (WBC) Count 10.2 thou/uL (4.8-10.8)
[2020-04-04 03:40] LABS: Anion Gap 19 mmol/L (10-20); BUN (Urea Nitrogen) 13 mg/dL (8.9-20.6); Calc. Creatinine Clearance 126 mL/min (70-130); Calcium 8.9 mg/dL (7.8-10.44); Carbon Dioxide 18 mmol/L (22-29); Chloride 102 mmol/L (98-107); Estimated GFR-MDRD Greater than 90; Glucose 87 mg/dL (70-105); Potassium 3.8 mmol/L (3.5-5.1); Sodium 135 mmol/L (136-145)
[2020-04-04] MEDS: Calcium Carbonate 500 MG ChewTAB PO PRN (04:50)
[2020-04-04] MEDS: Carvedilol 6.25 MG TAB PO SCH (06:26)
[2020-04-04 06:27] VITALS: BP 112/60
[2020-04-04] MEDS: Aspirin 81 mg Enteric Coated Tablet PO SCH (07:21)
[2020-04-04] MEDS: Alogliptin 25 MG TAB PO SCH (07:21)
[2020-04-04] MEDS: Furosemide 20 MG TAB PO SCH (07:21)
[2020-04-04] MEDS: Empagliflozin 25 MG TAB PO SCH (07:21)
[2020-04-04] MEDS: Losartan 25 MG TAB PO SCH (07:22)
[2020-04-04] MEDS: HumuLIN 70/30 (300 UNITS/3 ML VIAL) SC SCH (07:22)
[2020-04-04] MEDS: Pantoprazole 40 MG VIAL IVP SCH (07:23)
[2020-04-04] MEDS ORDERED: Ondansetron PF 4 MG/2 ML Vial ONE (08:58)
[2020-04-04] MEDS ORDERED: PROPOFOL 200 MG/20 ML VIAL ONE (08:58)
[2020-04-04 15:15] VITALS: TEMP 98.2
--- NOTE | 2020-04-04 16:31 | DIS ---
DATE OF ADMISSION: 04/01/2020 DATE OF DISCHARGE: 04/04/2020 DISCHARGE DIAGNOSES: 1. Diabetic ketoacidosis. 2. Uncontrolled type 2 diabetes mellitus with A1c of 8.5. 3. Polysubstance abuse. 4. Severe GERD. 5. Alcoholic cardiomyopathy. 6. Chronic GERD. 7. Possible diabetic gastroparesis. DISCHARGE MEDICATIONS: 1. 70/30 Humulin 5 units twice a day. 2. Protonix 40 mg twice a day for 1 week and then once daily. 3. Aspirin 81 mg daily. 4. Lipitor 20 mg daily. 5. Coreg 6.25 twice a day. 6. Invokana 300 mg daily. 7. Januvia 100 mg daily. 8. Losartan 50 mg daily. 9. Lasix 20 mg daily. CONSULT: GI with Dr. Larry Lee. PHYSICAL EXAMINATION: VITAL SIGNS: On the day of discharge, temperature 97.5, pulse 103, blood pressure 138/86, saturating 99% on room air. GENERAL: The patient is alert and oriented. He just returned from his EGD. Official report is pending. It appears that they did biopsy, but no jeff ulcers noted. Again, the official report is currently pending. CARDIOVASCULAR: Regular rate and rhythm without murmurs, rubs, or gallops. LUNGS: Clear. ABDOMEN: Quite benign. HOSPITAL COURSE: A 49-year-old male with a history of type 2 diabetes mellitus, presented with DKA. DKA protocol followed. Over the time, he improved to the level he was tolerating his diabetic diet. The patient has chronic GERD symptoms and he did not have any previous EGD. No abnormality and gastric biopsy done with EGD. He probably has diabetic gastroparesis. He would benefit with Reglan if the current treatment plan is not improving his symptoms. He complains mostly of burning sensation while he takes p.o. intake. He did not have symptoms suggestive of gastroparesis. However, given his A1c elevation of 8.5, gastroparesis cannot be ruled out. I have explained this to the patient and he will follow up with the primary care physician including consideration for starting him on Reglan. DISCHARGE INSTRUCTIONS: Activity as tolerated. Diabetic diet. Follow up with PCP in 1 week. Discharge time took over 35 minutes. Job ID: [id number] [facility]ITAL[facility]
--- NOTE | 2020-04-04 16:35 | OP ---
DATE OF PROCEDURE: 04/04/2020 PROCEDURE PERFORMED: Esophagogastroduodenoscopy with biopsy. PREOPERATIVE DIAGNOSIS: Refractory reflux. DESCRIPTION OF PROCEDURE: Informed consent was obtained from the patient. He was sedated with total intravenous anesthesia. The bite block was placed and the endoscope was advanced easily to the second portion of the duodenum and retroflexion was performed in the stomach. The esophagus had severe grade D erosive esophagitis with circumferential ulceration throughout the distal half of the esophagus from 30 cm to 40 cm. There was a 1-cm hiatal hernia present. There was mild erythematous gastritis in the antrum and biopsies were obtained to rule out H pylori. Esophageal biopsies were obtained to rule out viral esophagitis or fungal esophagitis. The pylorus and first and second portions of the duodenum were normal. IMPRESSION: 1. Severe grade D circumferential ulcerative esophagitis throughout the lower half to the esophagus. Biopsies obtained. 2. Antral gastritis, mild, biopsied. 3. 1-cm hiatal hernia. 4. Diabetic gastroparesis could be causing ongoing reflux and esophagitis despite proton pump inhibitor. RECOMMENDATIONS: 1. Await histopathology. 2. Proton pump inhibitor twice daily, pantoprazole 40 mg 30 minutes before breakfast and 30 minutes before supper. 3. Followup with Dr. Frances as an outpatient and at that time, gastric emptying scan can be considered. In the meantime, he should take smaller more frequent meals and a lower residue diet. 4. Primary treatment will be tighter control of his diabetes. 5. I will sign off. Please call if GI can be of help. Job ID: [id number]
--- NOTE | 2020-04-06 06:29 | PQF ---
CLINICAL DOCUMENTATION CLARIFICATION FORM: Dear : Carson Motley Date / Time: 04/06/20627 Please exercise your independent, professional judgment in responding to the clarification form. Clinical indicators are provided on the bottom of this form for your review Please check appropriate box(es): SIRS due to Non-infectious process [ x] With Acute Kidney Failure [ ] Without organ dysfunction [ ] Other diagnosis [ ] Unable to determine In addition, please specify: Present on Admission (POA): [ ] Yes [ ] No [ ] Unable to determine Physician Signature: Date/Time: For continuity of documentation, please document condition throughout progress notes and discharge summary. Thank You. To be completed by CDI/Coding staff for physician review: Present Clinical Indicators - Signs / Symptoms / Labs Results and Location in Medical Record [X] WBC 28.2, Neutrophils 88, Band 4, BUN 20, Creatinine 1.54, GFR 49 Laboratory 04/01 [X] Temp 99.0, Pulse 114, Resp 21, BP 129/74 Vital signs 04/01 [X] SIRS Scoring: Yes, Pt did meet criteria ED notes p2 04/01 [X] Presented with hx of Nausea and vomiting H&P p1 Dr Urban 04/01 [X] Diabetic ketosidosis H&P p4 Dr Urban 04/01 [X] Alcohol ingestion H&P p4 Dr Urban 04/01 [X] Acute renal failure H&P p4 Dr Urban 04/01 Present Risk Factors Results and Location in Medical Record [X] DM H&P p1 Dr Urban 04/01 [X] CHF H&P p1 Dr Urban 04/01 [X] Alcoholic Cardiomyopathy H&P p1 Dr Urban 04/01 [X] Smoker H&P p1 Dr Urban 04/01 Present Treatments Results and Location in Medical Record [X] IV Vancomycin 2 gm SEP 05 [X] IVF NS 1L SEP 05 [X] Series of Blood Chem Laboratory 04/01 CDS/Intensivist Signature: Cassi Nugent Phone #: [phone] Date/Time: 04/06/2020627 This is a permanent part of the Medical Record [facility]
== END 2020-04-04 16:04 | disposition home or self-care (01) | DRG 637 ==
LOC: ERS 01:49 → IMCU/EMU 04:50
PROVIDERS: ADMIT Internal Medicine; ATTEND Internal Medicine
PROC: 0DB38ZX Excision of Lower Esophagus, Via Natural or Artificial Opening Endoscopic, Diagnostic (ICD-10-PCS; principal; 2020-04-04)
PROC: 0DB78ZX Excision of Stomach, Pylorus, Via Natural or Artificial Opening Endoscopic, Diagnostic (ICD-10-PCS; 2020-04-04)
DX: E11.10 Type 2 diabetes mellitus with ketoacidosis without coma (principal); R65.11 Systemic inflammatory response syndrome (SIRS) of non-infectious origin with acute organ dysfunction; I42.6 Alcoholic cardiomyopathy; I50.22 Chronic systolic (congestive) heart failure; N17.9 Acute kidney failure, unspecified; Z20.828 Contact with and (suspected) exposure to other viral communicable diseases; E11.43 Type 2 diabetes mellitus with diabetic autonomic (poly)neuropathy; K31.84 Gastroparesis; F41.9 Anxiety disorder, unspecified; E78.5 Hyperlipidemia, unspecified; E78.00 Pure hypercholesterolemia, unspecified; E03.9 Hypothyroidism, unspecified; I10 Essential (primary) hypertension; F17.220 Nicotine dependence, chewing tobacco, uncomplicated; I48.91 Unspecified atrial fibrillation; E86.0 Dehydration; R06.6 Hiccough; F10.10 Alcohol abuse, uncomplicated; F15.10 Other stimulant abuse, uncomplicated; Y90.0 Blood alcohol level of less than 20 mg/100 ml; F14.10 Cocaine abuse, uncomplicated; K21.00 Gastro-esophageal reflux disease with esophagitis, without bleeding; K44.9 Diaphragmatic hernia without obstruction or gangrene; K29.70 Gastritis, unspecified, without bleeding; Z95.810 Presence of automatic (implantable) cardiac defibrillator; Z79.899 Other long term (current) drug therapy; Z79.82 Long term (current) use of aspirin; Z90.49 Acquired absence of other specified parts of digestive tract
CPT/HCPCS: 36415; 36416; 71045; 80048; 80053; 80061; 80202; 80306; 80307; 81003; 81015; 82010; 83036; 83605; 83690; 83735; 83880; 83930; 84100; 84484; 85025; 87040; 87086; 87635; 88305; 88312; 88313; 93005; C9113; J0692; J1630; J1815; J2060; J2270; J2405; J2550; J2704; J2765; J3230; J3370; J3480; J3490; J7030; J7050; S0028; U0003

== ENCOUNTER 2020-04-16 08:05 | Outpatient (CLI) | payer BC ==
--- NOTE | 2020-04-16 13:15 | NM ---
Radionucleotide gastric emptying scan HISTORY: Gastroesophageal reflux. Abdomen pain. FINDINGS: Planar imaging shows good mixing of radiotracer within the stomach. Half life emptying calculated at 36 minutes Time: Percent emptying 30 minutes: 34% 60 minutes: 79% 2 hours: 98% 3 hours: 98% 4 hours: 100% IMPRESSION : Normal exam.
== END 2020-04-16 08:06 | disposition home or self-care (01) ==
LOC: NM 08:05
PROVIDERS: ATTEND Internal Medicine
DX: K21.9 Gastro-esophageal reflux disease without esophagitis (principal)
CPT/HCPCS: 78264; A9541

== ENCOUNTER 2020-05-09 13:51 | Emergency (ER) | payer BC ==
--- NOTE | 2020-05-09 14:36 | RAD ---
Exam: XR Knee Lt 4 View STANDARD HISTORY: Left knee pain and swelling for 3 days. 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 There are subchondral cystic changes involving the bi partite patella. No acute fracture or dislocation is seen involving the left knee. There is a moderate-sized suprapatellar knee joint effusion IMPRESSION: 1. No acute osseous abnormality. 2. 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 3. Moderate-sized knee joint effusion. If there is concern for internal derangement, MRI left knee is recommended for further evaluation.
[2020-05-09] MEDS ORDERED: Lidocaine 1% (PF) 30 ML VIAL ONE (14:42)
[2020-05-09] MEDS ORDERED: Ketorolac Tromethamine 30 MG/ML VIAL ONE (16:09)
[2020-05-09] MEDS ORDERED: Acetaminophen 500 MG TAB ONE (16:09)
[2020-05-09 16:12] LABS: #Basophils 0.1 thou/uL (0.0-0.2); #Eosinphils 0.2 thou/uL (0.0-0.7); #Lymphocytes 3.7 thou/uL (1.20-3.40); #Neutrophils 5.9 thou/uL (1.40-6.50); %Basophils 0.7 % (0.0-1.0); %Eosinophils 2.2 % (0.0-10.0); %Lymphocytes 33.7 % (21.0-51.0); %Monocytes 9.1 % (0.0-10.0); %Neutrophils 54.2 % (42.0-75.0); Hemoglobin 15.9 g/dL (14.0-18.0); Mean Corpuscular HGB CONC 33.5 g/dL (32.0-36.0); Mean Corpuscular Volume 89.5 fL (78.0-98.0); Mean Platelet Volume 8.6 fL (7.4-10.4); Platelet Count 224 thou/uL (130-400); RBC Distribution Width 12.3 % (11.5-14.5); White Blood Cell (WBC) Count 10.9 thou/uL (4.8-10.8)
[2020-05-09 16:36] LABS: ALT (SGPT) 22 U/L (8-55); AST (SGOT) 16 U/L (5-34); Albumin 4.3 g/dL (3.5-5.0); Alkaline Phosphatase 96 U/L (40-110); Anion Gap 14 mmol/L (10-20); BUN (Urea Nitrogen) 18 mg/dL (8.9-20.6); Bilirubin, Total 0.5 mg/dL (0.2-1.2); Calc. Creatinine Clearance 0 mL/min (70-130); Calcium 9.7 mg/dL (7.8-10.44); Carbon Dioxide 28 mmol/L (22-29); Chloride 99 mmol/L (98-107); Globulin 3.5 g/dL (2.4-3.5); Glucose 172 mg/dL (70-105); Protein, Total 7.8 g/dL (6.0-8.3); Sodium 137 mmol/L (136-145)
[2020-05-09 17:01] LABS: RBC Count-Automated (BF) 23101 /cu.mm; WBC/Nucleated-Auto (BF) 12726 uL
[2020-05-09 17:09] LABS: BF Color Red; Body Fluid Source Synovial Fluid; Clarity Cloudy/Turbid (Clear); Tube # EDTA
[2020-05-09 17:11] LABS: BF Segmented Neutrophils 61 %; Cell Count Non Hematic 34 %; Lymphocytes 5 %
== END 2020-05-09 17:45 | disposition home or self-care (01) ==
LOC: ERS 13:51
DX: M25.461 Effusion, right knee (principal); E03.9 Hypothyroidism, unspecified; E78.5 Hyperlipidemia, unspecified; I48.91 Unspecified atrial fibrillation; I10 Essential (primary) hypertension; E11.9 Type 2 diabetes mellitus without complications; I42.9 Cardiomyopathy, unspecified; F41.9 Anxiety disorder, unspecified; Z87.891 Personal history of nicotine dependence; Z79.899 Other long term (current) drug therapy; Z79.82 Long term (current) use of aspirin; Z79.1 Long term (current) use of non-steroidal anti-inflammatories (NSAID)
CPT/HCPCS: 20610; 36415; 80053; 82945; 84157; 84550; 85025; 85060; 85652; 86140; 87070; 87205; 89051; 89060; 96372; J1885; J2001

== ENCOUNTER 2020-08-04 18:56 | Emergency (ER) | payer BC ==
--- NOTE | 2020-08-04 19:29 | RAD ---
RADIOGRAPH CHEST 1 VIEW: DATE: 08/04/2020 HISTORY: 49-year-old male with chest pain FINDINGS: There are no airspace densities, pulmonary edema, pneumothorax, or cardiomegaly. The lateral costophr enic angles are sharp. Multilead AICD with left-sided generator. IMPRESSION: 1. No acute cardiopulmonary findings. 2. Automatic implantable cardioverter-defibrillator
[2020-08-04 19:35] LABS: #Basophils 0.1 thou/uL (0.0-0.2); #Eosinphils 0.3 thou/uL (0.0-0.7); #Lymphocytes 4.7 thou/uL (1.20-3.40); #Monocytes 1.1 thou/uL (0.11-0.59); #Neutrophils 6.1 thou/uL (1.40-6.50); %Basophils 1.2 % (0.0-1.0); %Eosinophils 2.6 % (0.0-10.0); %Lymphocytes 38.2 % (21.0-51.0); %Monocytes 8.6 % (0.0-10.0); %Neutrophils 49.5 % (42.0-75.0); Hemoglobin 17.1 g/dL (14.0-18.0); Mean Corpuscular HGB CONC 33.3 g/dL (32.0-36.0); Mean Corpuscular Hemoglobin 28.8 pg (27.0-31.0); Mean Corpuscular Volume 86.6 fL (78.0-98.0); Mean Platelet Volume 8.7 fL (7.4-10.4); Platelet Count 229 thou/uL (130-400); RBC Distribution Width 12.1 % (11.5-14.5); Red Blood Cell (RBC) Count 5.94 mill/uL (4.70-6.10); White Blood Cell (WBC) Count 12.3 thou/uL (4.8-10.8)
[2020-08-04 19:55] LABS: ALT (SGPT) 17 U/L (8-55); AST (SGOT) 16 U/L (5-34); Albumin 4.2 g/dL (3.5-5.0); Alkaline Phosphatase 91 U/L (40-110); Anion Gap 16 mmol/L (10-20); BUN (Urea Nitrogen) 20 mg/dL (8.9-20.6); Bilirubin, Total 0.6 mg/dL (0.2-1.2); CK (CPK) 81 U/L (30-200); Calc. Creatinine Clearance 0 mL/min (70-130); Calcium 9.2 mg/dL (7.8-10.44); Carbon Dioxide 24 mmol/L (22-29); Chloride 102 mmol/L (98-107); Globulin 3.1 g/dL (2.4-3.5); Glucose 199 mg/dL (70-105); Potassium 3.6 mmol/L (3.5-5.1); Protein, Total 7.3 g/dL (6.0-8.3); Sodium 138 mmol/L (136-145)
== END 2020-08-04 21:26 | disposition home or self-care (01) ==
LOC: ERS 18:56
DX: R42 Dizziness and giddiness (principal); R06.02 Shortness of breath; E03.9 Hypothyroidism, unspecified; E78.5 Hyperlipidemia, unspecified; E78.00 Pure hypercholesterolemia, unspecified; I48.91 Unspecified atrial fibrillation; I10 Essential (primary) hypertension; E11.9 Type 2 diabetes mellitus without complications
CPT/HCPCS: 71045; 80053; 82550; 84484; 85025; 93005; 94760

== ENCOUNTER 2021-08-26 16:39 | Emergency (ER) | payer OTHER ==
[2021-08-26] MEDS ORDERED: Ondansetron ODT 4 MG TAB ONE (19:52)
[2021-08-26] MEDS ORDERED: Morphine 4 MG/ML VIAL ONE (19:53)
[2021-08-26] MEDS ORDERED: HYDROcodone/Acetaminophen 7.5/325 mg Tablet ONE (19:53)
[2021-08-26] MEDS ORDERED: Bacitracin 1 PK ONE (19:59)
== END 2021-08-26 20:25 | disposition home or self-care (01) ==
LOC: ERS 16:39
DX: S92.062A Displaced intraarticular fracture of left calcaneus, initial encounter for closed fracture (principal); E03.9 Hypothyroidism, unspecified; E78.00 Pure hypercholesterolemia, unspecified; I48.91 Unspecified atrial fibrillation; I10 Essential (primary) hypertension; E11.9 Type 2 diabetes mellitus without complications; E78.5 Hyperlipidemia, unspecified; Z87.891 Personal history of nicotine dependence; Z79.82 Long term (current) use of aspirin; Z79.899 Other long term (current) drug therapy; W11.XXXA Fall on and from ladder, initial encounter
CPT/HCPCS: 29515; 96372; J2270; Q0162